=== PATIENT | male | born 1995 | race Caucasian/White ===

== ENCOUNTER 2019-03-11 05:48 | Emergency (ER) | payer SELFPAY ==
[~2019-03-11] VITALS: Ht 167.6 cm; Wt 67.1 kg
[2019-03-11 05:57] VITALS: Ht 167.6 cm; Wt 67.1 kg
[2019-03-11 07:04] VITALS: BP 103/58
== END 2019-03-11 07:04 | disposition home or self-care (01) ==
LOC: ED 05:48
DX: J20.9 Acute bronchitis, unspecified (principal)